=== PATIENT | male | born 1990 | race Caucasian/White ===

== ENCOUNTER 2021-05-22 11:24 | Emergency (ER) | payer BC ==
[~2021-05-22] VITALS: Ht 175.3 cm; Wt 78.3 kg
[2021-05-22 11:24] VITALS: BP 132/62
--- NOTE | 2021-05-22 11:41 | PHYS DOC ---
General Adult EDM: Chief Complaint: COUGH HPI: HPI: Patient is a 30-year-old male who presents to the emergency department for a nonproductive cough, shortness of breath and generalized chest wall tenderness with cough and deep inspiration. Patient has a history of asthma and feels like he is having an exacerbation. Patient denies fever, nausea, vomiting. He reports he has been using his albuterol inhaler but does not have a nebulizer machine at home. Review of Systems: Review of Systems: Constitutional: See HPI Respiratory: See HPI Cardiovascular: See HPI GI: See HP Musculoskeletal: See HPI Allergies: Allergies: Allergies Coded Allergies Type Severity Reaction Last Updated Verified No Known Drug Allergies 05/22/21 No Physical Exam: PE: Constitutional: Well developed, well nourished, no acute distress, non-toxic appearance. [] HENT: Normocephalic, atraumatic, bilateral external ears normal, oropharynx moist, no oral exudates, nose normal. [] Eyes: PERRL, EOMI, conjunctiva normal, no discharge. [] Neck: Normal range of motion, no tenderness, supple, no stridor. [] Cardiovascular:Heart rate regular rhythm, no murmur [] Lungs & Thorax: Mild wheezing noted in bilateral lower lobe Abdomen: Bowel sounds normal, soft, no tenderness, no masses, no pulsatile masses. [] Skin: Warm, dry, no erythema, no rash. [] Back: No tenderness, normal range of motion Extremities: No tenderness, no cyanosis, no clubbing, ROM intact, no edema. [] Neurologic: Alert and oriented X 3, normal motor function, normal sensory function, no focal deficits noted. [] Psychologic: Affect normal, judgement normal, mood normal. [] Current Patient Data: Labs: Laboratory Tests Test 05/22/21 11:40 Influenza Type A (Rapid) Negative Influenza Type B (Rapid) Negative SARS-CoV-2 Antigen (Rapid) Negative Current Medications Medications (Trade) Dose Ordered Sig/Frances Route PRN Reason Start Time Stop Time Status Last Admin Dose Admin Albuterol/ Ipratropium (Duoneb) 3 ml 1X ONCE NEB 05/22/21 11:45 05/22/21 11:46 DC 05/22/21 11:56 Prednisone (Prednisone) 60 mg 1X ONCE PO 05/22/21 11:45 05/22/21 11:46 DC 05/22/21 11:56 Vital Signs: Vital Signs Date Time Temp Pulse Resp B/P (MAP) Pulse Ox O2 Delivery O2 Flow Rate FiO2 05/22/21 11:24 97.6 83 20 132/62 (85) 99 Room Air EKG: EKG: [] Radiology/Procedures: Radiology/Procedures: []PROCEDURE: CHEST PA & LATERAL XR CHEST 2V History: Short of air, cough Comparison: Chest x-ray 02/23/2018 Technique: PA and lateral chest radiographs. Findings: The lungs are adequately and symmectrically inflated. No airspace consolidation, pleural effusion or pneumothorax. The cardiomediastinal silhoutte and pulmonary vasculature are within normal limits. Soft tissues and osseous structures are unremarkable. Impression: 1. No acute cardiopulmonary process. Electronically signed by: Sean Garza MD (05/22/2021 12:48 PM) [facility] DICTATED AND SIGNED BY: SEAN GARZA MD DATE: 05/22/21 1241 CC: ELISA STARR APRN; PCP,NO ~ Heart Score: C/O Chest Pain: N/A Risk Factors: Risk Factors: DM, Current or recent (<one month) smoker, HTN, HLP, family history of CAD, obesity. Risk Scores: Score 0 - 3: 2.5% MACE over next 6 weeks - Discharge Home Score 4 - 6: 20.3% MACE over next 6 weeks - Admit for Clinical Observation Score 7 - 10: 72.7% MACE over next 6 weeks - Early Invasive Strategies Course & Med Decision Making: Course & Med Decision Making Pertinent Labs and Imaging studies reviewed. (See chart for details) [] Presents to the emergency department for cough, shortness of breath and chest wall tenderness with cough and deep inspiration. Patient has a history of asthma. Work-up in the ER consisted of Covid, flu testing as well as a chest x- ray to rule out pneumonia. Patient be treated with a DuoNeb and steroid. Patient's chest x-ray did not show any acute findings. He had negative Covid and flu testing. Patient reports improvement in his symptoms following DuoNeb. Patient advised to continue his albuterol inhaler and he will be discharged home with a steroid. His vital signs are stable. I discussed with patient all findings and diagnostic testing as well as the need to follow-up with PCP for further evaluation and treatment or return to the ER if any new or worsening symptoms. Strict return precautions were also discussed at length. Patient voiced understanding and agreement with the plan. Patient is hemodynamically stable at the time of disposition. Karlie Disclaimer: Karlie Disclaimer: This electronic medical record was generated, in whole or in part, using a voice recognition dictation system. Departure Departure: Impression: Primary Impression: Asthma exacerbation Qualified Codes: J45.901 - Unspecified asthma with (acute) exacerbation Disposition: HOME / SELF CARE / HOMELESS Condition: GOOD Referrals: PCP,NO (PCP) Patient Instructions: Asthma, Adult Additional Instructions: You were seen in the emergency department today for cough and shortness of breath. You had negative influenza and COVID testing and your chest x-ray did not show any acute findings. Continue to take your albuterol inhaler as needed at home. You are being discharged home with a steroid to help with your asthma exacerbation. Increase your fluids and rest. Take Tylenol or ibuprofen for any pain or fevers. Follow-up with your primary care provider on Sunday regarding your ER visit. Return to the emergency department if you develop shortness of breath, chest pain, high fevers refractory to treatment, tractable nausea or vomiting, weakness. Scripts Prednisone (PREDNISONE) 50 Mg Tablet 1 TAB PO DAILY for asthma for 5 Days, #5 TAB 0 Refills Prov: ELISA STARR APRN 05/22/21 ELISA STARR APRN May 22, 2021 11:41
[2021-05-22] MEDS ORDERED: predniSONE 20 MG TABLET PO ONE (11:45)
[2021-05-22] MEDS ORDERED: IPRATRPIUM/ALBUTEROL 0.5/2.5MG 3 ML NEBU. NEB ONE (11:45)
[2021-05-22 12:14] LABS: INFLUENZA A PATIENT NEGATIVE (NEGATIVE); INFLUENZA B PATIENT NEGATIVE (NEGATIVE)
--- NOTE | 2021-05-22 12:50 | RAD ---
XR CHEST 2V History: Short of air, cough Comparison: Chest x-ray 02/23/2018 Technique: PA and lateral chest radiographs. Findings: The lungs are adequately and symmectrically inflated. No airspace consolidation, pleural effusion or pneumothorax. The cardiomediastinal silhoutte and pulmonary vasculature are within normal limits. Sof t tissues and osseous structures are unremarkable. Impression: 1. No acute cardiopulmonary process. Electronically signed by: Sean Garza MD (05/22/2021 12:48 PM) [facility]
[2021-05-22] MEDS ORDERED: PRED50TA PO (12:55)
== END 2021-05-22 13:18 | disposition home or self-care (01) ==
LOC: ER 11:24
DX: J45.901 Unspecified asthma with (acute) exacerbation (principal); Z20.822 Contact with and (suspected) exposure to COVID-19
CPT/HCPCS: 71046; 87428; 94640; 99284; J7512

== ENCOUNTER 2021-06-16 10:31 | Emergency (ER) | payer BC ==
[~2021-06-16] VITALS: Ht 175.3 cm; Wt 78.3 kg
[~2021-06-16 10:31] MED LIST: PRED50TA PO
--- NOTE | 2021-06-16 10:56 | PHYS DOC ---
Past History Past Surgical History: No Surgical History (ELISA STARR APRN) Alcohol Use: Rarely (ELISA STARR APRN) General Adult HPI: HPI: Patient is a 30-year-old male who presents to the emergency department for nasal congestion and drainage, nonproductive cough and chest wall tenderness when he coughs. Patient denies fevers, shortness of breath. He reports that his is sick with similar symptoms. He has a history of asthma and uses rescue inhaler. (ELISA STARR APRN) Review of Systems: Review of Systems: Constitutional: see HPI HENT: ee HPI Respiratory:ee HPI (ELISA STARR APRN) Allergies: Allergies: Allergies Coded Allergies Type Severity Reaction Last Updated Verified No Known Drug Allergies 05/22/21 No (ELISA STARR APRN) Physical Exam: PE: Constitutional: Well developed, well nourished, no acute distress, non-toxic appearance. [] HENT: Normocephalic, atraumatic, bilateral external ears normal, oropharynx moist, no oral exudates, nasal congestion and drainage noted Eyes: PERRL, EOMI, conjunctiva normal, no discharge. [] Neck: Normal range of motion, no tenderness, supple, no stridor. [] Cardiovascular:Heart rate regular rhythm, no murmur [] Lungs & Thorax: Bilateral breath sounds clear to auscultation [] Abdomen: Bowel sounds normal, soft, no tenderness, no masses, no pulsatile masses. [] Skin: Warm, dry, no erythema, no rash. [] Back: No tenderness, normal range of motion Extremities: No tenderness, no cyanosis, no clubbing, ROM intact, no edema. [] Neurologic: Alert and oriented X 3, normal motor function, normal sensory function, no focal deficits noted. [] Psychologic: Affect normal, judgement normal, mood normal. [] (ELISA STARR APRN) Current Patient Data: Labs: Laboratory Tests Test 06/16/21 11:35 Influenza Type A (Rapid) Negative Influenza Type B (Rapid) Negative SARS-CoV-2 Antigen (Rapid) Negative Current Medications Medications (Trade) Dose Ordered Sig/Frances Route PRN Reason Start Time Stop Time Status Last Admin Dose Admin Ibuprofen (Motrin) 600 mg 1X ONCE PO 06/16/21 11:00 06/16/21 11:01 DC 06/16/21 11:15 (ELISA STARR APRN) EKG: EKG: [] (ELISA STARR APRN) Radiology/Procedures: Radiology/Procedures: []REASON: cough, asthma PROCEDURE: CHEST PA & LATERAL EXAMINATION: XR CHEST 2V. HISTORY: 30 years Male Reason: cough, asthma COMPARISON: May 22, 2021. Findings: The lungs are clear. The heart size is normal. There is no effusion or pneumothorax. The mediastinum and ashu appear unremarkable. Impression: Unremarkable study. Electronically signed by: Carmen Chavez MD (06/16/2021 11:28 AM) [id number] DICTATED AND SIGNED BY: CARMEN CHAVEZ MD DATE: 06/16/211126 CC: ELISA STARR APRN; PCP,NO ~ (ELISA STARR APRN) Heart Score: C/O Chest Pain: N/A Risk Factors: Risk Factors: DM, Current or recent (<one month) smoker, HTN, HLP, family history of CAD, obesity. Risk Scores: Score 0 - 3: 2.5% MACE over next 6 weeks - Discharge Home Score 4 - 6: 20.3% MACE over next 6 weeks - Admit for Clinical Observation Score 7 - 10: 72.7% MACE over next 6 weeks - Early Invasive Strategies (ELSIA STARR APRN) Course & Med Decision Making: Course & Med Decision Making Pertinent Labs and Imaging studies reviewed. (See chart for details) [] Patient presents to the emergency department for nasal congestion/drainage, chest wall tenderness with cough. Patient does have a history of asthma. His lung sounds are clear. He will be tested for influenza and COVID have a chest x-ray to rule out pneumonia. Patient is reporting significant sinus pressure pain. Patient had negative COVID and influenza testing. Chest x-ray did not show any acute findings. Patient's vital signs are stable, heart rate is 90 bpm. Patient reports that he has a rescue inhaler at home. Patient is advised to continue using his albuterol inhaler at home. He will be discharged home with a steroid for asthma exacerbation and an antibiotic for sinusitis. I di scussed with patient all findings and diagnostic testing as well as the need to follow-up with PCP for further evaluation and treatment or return to the ER if any new or worsening symptoms. Strict return precautions were also discussed at length. Patient voiced understanding and agreement with the plan. Patient is hemodynamically stable at the time of disposition. (ELISA STARR APRN) [place]on Disclaimer: Karlie Disclaimer: This electronic medical record was generated, in whole or in part, using a voice recognition dictation system. (ELISA STARR APRN) Departure Departure: Impression: Primary Impression: Asthma exacerbation Qualified Codes: J45.901 - Unspecified asthma with (acute) exacerbation Additional Impression: Sinusitis Qualified Codes: J01.00 - Acute maxillary sinusitis, unspecified Disposition: HOME / SELF CARE / HOMELESS Condition: GOOD Referrals: PCP,NO (PCP) Patient Instructions: Asthma, Adult, [id number], Sinusitis Additional Instructions: You are seen in the emergency department today for nasal congestion/drainage and a cough. Continue taking your inhaler at home. You are being discharged home with a steroid. You are also being discharged home with an antibiotic that will treat sinus infection. Please increase your fluids as this will thin your secretions. Take Tylenol and ibuprofen at home for pain. You can take Mucinex [id number] for congestion. Follow-up with your primary care provider within a week. Return to the emergency department if you develop chest pain, shortness of breath, high fevers refractory to treatment, intractable nausea or vomiting. Scripts Amoxicillin/Potassium Clav (AUGMENTIN 875-125 TABLET) 1 Each Tablet 1 TAB PO BID for sinusitis for 10 Days, #20 TAB 0 Refills Prov: ELISA STARR APRN 06/16/21 Prednisone (PREDNISONE) 50 Mg Tablet 1 TAB PO DAILY for asthma , #5 TAB 0 Refills Prov: ELISA STARR APRN 06/16/21 Attending Signature I have participated in the care of this patient and I have reviewed and agree with all pertinent clinical information above including history, exam, and recommendations. (MARIA ALEJANDRA DURAND DO) ELISA STARR APRN June 16, 2021 10:56 MARIA ALEJANDRA DURAND DO June 16, 2021 12:55
[2021-06-16] MEDS ORDERED: IBUPROFEN 600 MG TABLET. PO ONE (11:00)
--- NOTE | 2021-06-16 11:30 | RAD ---
EXAMINATION: XR CHEST 2V. HISTORY: 30 years Male Reason: cough, asthma COMPARISON: May 22, 2021. Findings: The lungs are clear. The heart size is normal. There is no effusion or pneumothorax. The mediastinum and ashu appear unremarkable. Impression: Unremarkable study. Electronically signed by: Familia Chavez MD (06/16/2021 11:28 AM) [id number]
[2021-06-16 12:23] LABS: INFLUENZA A PATIENT NEGATIVE (NEGATIVE); INFLUENZA B PATIENT NEGATIVE (NEGATIVE)
[2021-06-16] MEDS ORDERED: predniSONE 20 MG TABLET PO ONE (12:30)
[2021-06-16] MEDS ORDERED: AMOX1TAB61 PO (12:32)
[2021-06-16] MEDS ORDERED: PRED50TA PO (12:32)
[2021-06-16] MEDS ORDERED: predniSONE 20 MG TABLET ONE (12:51)
[2021-06-16 12:58] VITALS: BP 120/67
== END 2021-06-16 12:55 | disposition home or self-care (01) ==
LOC: ER 10:31
DX: J45.901 Unspecified asthma with (acute) exacerbation (principal); J01.00 Acute maxillary sinusitis, unspecified; Z20.822 Contact with and (suspected) exposure to COVID-19
CPT/HCPCS: 71046; 87428; 99284; J7512